=== PATIENT | male | born 1990 | race Caucasian/White ===

== ENCOUNTER 2016-09-11 16:09 | Emergency (ER) | payer BC, OTHER ==
[2016-09-11 17:23] VITALS: BP 129/105
--- NOTE | 2016-09-11 17:49 | UC ---
General HPI - HPI Summary HPI Summary: has had an anxiety disorder for the past 10 years. Treats it with counseling, meditation, non-pharmacological methods. Lately for past few months he has felt anxiety getting the better of him, and wants to "be proactive and get it treated before it adversely affects work." Notes recurrent obtrusive thoughts, difficulty focusing, thoughts of worthlessness, constant worry. He is not homicidal or suicidal, does not feel he will injure himself. His counselor has left the area but he has identified a new counselor he will follow up with ( Dinora Johnston). Has never used psychoactive meds in past - History of Current Complaint Chief Complaint: [facility] Stated Complaint: ANXIETY Time Seen by Provider: 09/11/16 17:28 Hx Obtained From: Patient Onset/Duration: Gradual Onset, Lasting Weeks - 8 Timing: Constant Onset Severity: Mild Current Severity: Moderate Associated Signs & Symptoms: Positive: Palpitations - occasional, Other - concentration difficulties, occasional insomnia. Negative: Confusion, Dizziness , Diarrhea, Dysuria, Decreased Oral Intake - Allergy/Home Medications Allergies/Adverse Reactions: Allergies Allergy/AdvReac Type Severity Reaction Status Date / Time Penicillins Allergy Unknown Verified 02/06/14 15:50 Reaction Details PMH/Surg Hx/FS Hx/Imm Hx Psychological History Of: Reports: Anxiety - Surgical History Surgical History: Yes Surgery Procedure, Year, and Place: appendix - Family History Known Family History: Positive: Hypertension - Social History Occupation: Employed Full-time - counselor Lives: With Family Alcohol Use: Rare Substance Use Type: None Smoking Status (MU): Never Smoked Tobacco Review of Systems Constitutional: Negative Skin: Negative Eyes: Negative ENT: Negative Respiratory: Negative Cardiovascular: Palpitations - occasional Gastrointestinal: Negative Genitourinary: Negative Motor: Negative Neurovascular: Negative Musculoskeletal: Negative Neurological: Negative Psychological: Anxious, Depressed All Other Systems Reviewed And Are Negative: Yes Physical Exam Triage Information Reviewed: Yes Appearance: Well-Appearing, No Pain Distress, Well-Nourished Vital Signs: Initial Vital Signs Temp 97.6 F 09/11/16 17:10 Pulse 83 09/11/16 17:10 Resp 16 09/11/16 17:10 BP 129/105 09/11/16 17:10 Pulse Ox 98 09/11/16 17:10 Vital Signs Reviewed: Yes Eye Exam: Normal Neck exam: Normal Respiratory Exam: Normal Cardiovascular Exam: Normal Musculoskeletal Exam: Normal Neurological Exam: Normal Psychological Exam: Normal Psychological: Positive: Other: - conversant, good insight, pleasant, very open about his difficulties. Normal conversational content. Skin Exam: Normal Course/Dx - Differential Dx - Multi-Symptom Provider Diagnoses: anxiety Discharge - Discharge Plan Condition: Stable Disposition: HOME Prescriptions: Citalopram TAB* [CeleXA TAB*] 20 mg PO DAILY #30 tab Patient Education Materials: Generalized Anxiety Disorder (ED) Referrals: Nichole Constantino MD [Primary Care Provider] - Cosme Barone MD [Medical Doctor] - Additional Instructions: Ask about psychiatry recommendations at the office where you intend to establish yourself with a counsellor; or call Dr. Reyes for an appointment. It will be helpful to have a psychiatrist or a Family Physician manage any psychoactive medications.
== END 2016-09-11 17:52 | disposition home or self-care (01) ==
LOC: UCCORT 16:09
DX: F41.9 Anxiety disorder, unspecified (principal); Z88.0 Allergy status to penicillin
CPT/HCPCS: 99212; G0463